=== PATIENT | female | born 1975 ===

== ENCOUNTER → 2017-10-11 | Day surgery (SDC) | payer OTHER ==
[2017-10-06 17:17] VITALS: BMI 26.6
[~2017-10-11] MED LIST: DEXAMETHASONE SOD PHOS (MDV) 100 MG/10 ML VIAL ONE; LIDOCAINE 1% INJ 10MG/ML (20 ML MDV) ONE; ONDANSETRON 4 MG/2 ML VIAL ONE; PROPOFOL 10 MG/ML 20 ML VIAL IV ONE
[2017-10-11 06:52] LABS: Glucose,Whole Blood 90 mg/dL (75-99)
--- NOTE | 2017-10-11 09:03 | PCN ---
PROCEDURE NOTE DATE OF SERVICE: 10/11/2017. REQUESTING PHYSICIAN: Dr. Maulik Goodman BRIEF HISTORY: Patient is a 42-year-old pleasant lady scheduled for an upper endoscopy as well as colonoscopy as a part of evaluation of epigastric pain, change in bowel habits, abdominal bloating for the last several years duration. Lately her symptoms are progressively getting worse and hence she is scheduled for an upper endoscopy as well as colonoscopy to evaluate further. PROCEDURE PERFORMED: 1. EGD with biopsy. 2. Colonoscopy. PREOPERATIVE DIAGNOSIS: Abdominal pain, change in bowel habits and abdominal bloating. IV sedation per anesthesia. PROCEDURE: After informed consent was obtained from the patient, she was brought into the endoscopy unit. IV conscious sedation was administered by anesthesia under continuous monitoring initially the upper endoscopy was done. The Olympus [id number] video endoscope was inserted into the mouth. Esophagus intubated without any difficulty, was gradually advanced into the stomach and duodenum and carefully examined. The bulb and the second part of the duodenum appeared normal. The scope at this time was withdrawn to the stomach adequately insufflated with air and upon careful examination, mucosa of the antrum had mild gastritis. Biopsies for H. pylori were done. Body of the stomach appeared normal and on retroflexion cardia and the fundus appeared normal. The scope was then withdrawn to the esophagus. The GE junction was located at 40 cm from the incisors, appeared regular with no erythema, erosions or ulcerations. The esophagus appeared normal and the patient tolerated the procedure well. She continued to remain sedated. At this time a colonoscopy was done. Digital rectal examination was normal. The Olympus CF 190 video colonoscope was then inserted into the rectum, gradually advanced into the cecum without any difficulty. Careful examination was performed as the scope was gradually being withdrawn. The ileocecal valve and appendiceal orifice were visualized and appeared normal. The prep was fair. Mucosa of the cecum, ascending colon, transverse colon, descending colon, sigmoid colon, and rectum appeared normal. In the rectum, retroflexion was performed no lesions were noted. The patient tolerated the procedure well. IMPRESSION: 1. Upper endoscopy revealed mild antral gastritis, but no evidence of esophagitis or peptic ulcer disease. 2. Colonoscopy was essentially within normal limits with no evidence of colitis or colorectal neoplasia. RECOMMENDATION: Findings of this examination were discussed with the patient as well as her family. She was advised to be on a high-fiber diet, take fiber supplements on a regular basis and with MiraLAX 1 scoop twice daily as needed for the chronic constipation. She will be seen in the office in 4 weeks. MMODL / IJN: [id number] /
== END ==
LOC: ORWHC2ENDO 11:13
PROVIDERS: ATTEND Internal Medicine Gastroenterology
DX: K31.9 Disease of stomach and duodenum, unspecified (principal); K21.0 Gastro-esophageal reflux disease with esophagitis; K29.70 Gastritis, unspecified, without bleeding; E11.9 Type 2 diabetes mellitus without complications; Q03.1 Atresia of foramina of Magendie and Luschka; Z79.84 Long term (current) use of oral hypoglycemic drugs; Z79.899 Other long term (current) drug therapy; Z88.8 Allergy status to other drugs, medicaments and biological substances
CPT/HCPCS: 43239; 45378; 88305

== ENCOUNTER → 2017-10-13 | Outpatient (CLI) | payer OTHER ==
--- NOTE | 2017-10-13 16:17 | MR ---
EXAMINATION TYPE: MR brain wo/w con DATE OF EXAM: 10/13/2017 COMPARISON: NONE HISTORY: Dandy-Walker malformation TECHNIQUE: Multiplanar, multisequence images of the brain and brainstem is performed without and with IV contras t, utilizing 7.5 mL intravenous Gadavist . FINDINGS: Diffusion weighted images demonstrate no evidence of a recent infarct or other diffusion ab normality. There is no extra-axial fluid collection or significant white matter signal abnormality. The ventricular system and cisternal spaces are normal in size and appearance. The brain volume is age appropriate. Small cystic space present posterior aspect of the basal ganglia on the left of ques tionable clinical significance Midline structures demonstrate normal morphology, vermis is intact. CSF fluid space present at the in ferior and posterior aspect of the posterior fossa is noted. The craniocervical junction appears wit hin normal limits. Post contrast images demonstrate no abnormal enhancement. The dural venous sinuse s appear patent. The visualized sinuses are remarkable for mucoperiosteal thickening within the maxil keshawn sinus, ethmoid air cells, and the globes are intact. IMPRESSION: Zeke cisterna magna, normal variant. Mild sinus disease.
== END | disposition home or self-care (01) ==
LOC: RADMRIMAIN 13:36
DX: Q03.1 Atresia of foramina of Magendie and Luschka (principal)
CPT/HCPCS: 82565; 70553; A9581

== ENCOUNTER → 2019-01-04 | Outpatient (CLI) | payer OTHER ==
--- NOTE | 2019-01-07 09:34 | MM ---
Reason for exam: follow-up at short interval from prior study. History: Family history of breast cancer in 2 maternal aunts and breast cancer in paternal aunt. Benign ultrasound-guided core biopsy of the left breast, 2017. Excisional biopsy of the left breast, 2017. Physical Findings: Nurse Summary: 1 x 1cm nodule in the left breast at 11 o'clock (nurse ts). MG Diagnostic Mammo w CAD AXEL Bilateral CC and MLO view(s) were taken. Spot compression MLO view(s) were taken of the left breast. The breast tissue is heterogeneously dense. This may lower the sensitivity of mammography. Compression left MLO view no persistent density. BB on scar area post surgical changes in the right breast. No significant new findings when compared with previous films. These results were verbally communicated with the patient and result sheet given to the patient on 01/04/19. ASSESSMENT: Benign, BI-RAD 2 RECOMMENDATION: Routine screening mammogram of both breasts in 1 year.
--- NOTE | 2019-01-07 09:36 | USB ---
Reason for exam: follow-up at short interval from prior study. History: Family history of breast cancer in 2 maternal aunts and breast cancer in paternal aunt. Benign ultrasound-guided core biopsy of the left breast, 2017. Excisional biopsy of the left breast, 2017. US Breast LT Left complete breast ultrasound includes all four quadrants, the retroareolar region and axilla. Finding demonstrates a 0.3 x 0.2 x 0.4cm lesion too small to characterize at 4 o'clock and a 0.7 x 0.5 x 0.6cm hypoechoic lesion at 11 o'clock correlates with palpable, biopsy recommended. These results were verbally communicated with the patient and result sheet given to the patient on 01/04/19. ASSESSMENT: Suspicious, BI-RAD 4 RECOMMENDATION: Ultrasound core biopsy of the left breast. (11 o'clock) Called with mammographic findings and has scheduled an appointment for the patient for 01/24/19 at 9:[address] Romo. Biopsy scheduled for 01/30/19 at 12:20. PRELIMINARY REPORT CALLED AND FAXED TO DR. ROMO ON 01/07/19.
== END | disposition home or self-care (01) ==
LOC: RADMAMWWP 09:41
PROVIDERS: ATTEND Internal Medicine Hematology & Oncology
DX: N60.81 Other benign mammary dysplasias of right breast (principal); N60.82 Other benign mammary dysplasias of left breast
CPT/HCPCS: 77066

== ENCOUNTER → 2019-01-30 | Day surgery (SDC) | payer OTHER ==
[2019-01-30 12:37] VITALS: PULSE 80; TEMP 98.6; BMI 29.2
[2019-01-30 14:32] VITALS: BP 110/74; RESP 16
--- NOTE | 2019-01-30 16:37 | USB ---
EXAMINATION TYPE: US biopsy breast VAD LT DATE OF EXAM: 01/30/2019 CLINICAL HISTORY: R92.8 ABN MAMMO. TECHNIQUE: Ultrasound guided vaccuum assisted core biopsy of left breast. COMPARISON: Ultrasound 01/04/2019 FINDINGS: The ultrasound guided core biopsy procedure was explained to the patient. The risks, benefits, alternatives were discussed. An informed consent was then obtained. Timeout was performed. The patient was placed in supine positioning for imaging and for the procedure. The overlying skin was prepped with betadine and sterilely draped in usual sterile fashion. Lidocaine 1% was used as anesthetic into the skin and deeper breast tissue up to area of concern in the breast. A small skin lita was made with surgical scalpel. Under ultrasound guidance, a 12-gauge vacuum assisted biopsy device was used to obtain multiple core samples. A biopsy clip was left in lesion. Good hemostasis was obtained with direct pressure. Discharge instructions were discussed with the patient. The patient will follow up with the referring physician for results. Postprocedure mammogram: The patient was transferred to mammography for physician ordered post procedure mammogram for clip placement verification. The clip is in the expected region of the biopsy. The patient tolerated the procedure well without any immediate complication. The patient was discharged to home in stable condition. IMPRESSION: 1. Successful ultrasound guided biopsy left breast. Recommendations: 1. Recommendations are pending pathology results. Pathology Results: Benign LEFT BREAST, ULTRASOUND GUIDED CORE BIOPSY: Scar with fat necrosis and background fibrocystic changes. Negative for malignancy. Recommendation Follow up mammogram of the left breast in 6 months. FLORECITA
--- NOTE | 2019-01-30 16:38 | MM ---
EXAMINATION TYPE: US biopsy breast VAD LT DATE OF EXAM: 01/30/2019 CLINICAL HISTORY: R92.8 ABN MAMMO. TECHNIQUE: Ultrasound guided vaccuum assisted core biopsy of left breast. COMPARISON: Ultrasound 01/04/2019 FINDINGS: The ultrasound guided core biopsy procedure was explained to the patient. The risks, benef its, alternatives were discussed. An informed consent was then obtained. Timeout was performed. The patient was placed in supine positioning for imaging and for the procedure. The overlying skin w as prepped with betadine and sterilely draped in usual sterile fashion. Lidocaine 1% was used as ane sthetic into the skin and deeper breast tissue up to area of concern in the breast. A small skin storm k was made with surgical scalpel. Under ultrasound guidance, a 12-gauge vacuum assisted biopsy device was used to obtain multiple core samples. A biopsy Ribbon clip was left in lesion. Good hemostasis was obtained with direct pressure. Discharge instructions were discussed with the marlon silvestre. The patient will follow up with the referring physician for results. Postprocedure mammogram: The patient was transferred to mammography for physician ordered post proced ure mammogram for clip placement verification. The clip is in the expected region of the biopsy. The patient tolerated the procedure well without any immediate complication. The patient was dischar ged to home in stable condition. IMPRESSION: 1. Successful ultrasound guided biopsy left breast. Recommendations: 1. Recommendations are pending pathology results.
== END ==
LOC: RADUSWWP 12:08
PROVIDERS: ATTEND Surgery
DX: N60.12 Diffuse cystic mastopathy of left breast (principal); N64.1 Fat necrosis of breast; L90.5 Scar conditions and fibrosis of skin; R92.8 Other abnormal and inconclusive findings on diagnostic imaging of breast; Z91.012 Allergy to eggs; Z91.011 Allergy to milk products; Z88.8 Allergy status to other drugs, medicaments and biological substances; Z91.018 Allergy to other foods
CPT/HCPCS: 88305; 77065; 19083; A4648; J2001

== ENCOUNTER → 2019-02-21 | Outpatient (CLI) | payer OTHER | END | disposition home or self-care (01) | LOC: WWCWWP 08:54 | PROVIDERS: ATTEND Surgery | DX: Z53.9 Procedure and treatment not carried out, unspecified reason (principal) ==

== ENCOUNTER 2020-11-05 12:06 | Emergency (ER) | payer OTHER ==
[2020-11-05 12:36] VITALS: BP 114/65; PULSE 87; RESP 18; TEMP 99
[2020-11-05] MEDS ORDERED: KETOROLAC 15 MG/ML 1 ML VIAL IM STA (12:43)
--- NOTE | 2020-11-05 12:53 | ED ---
Fall HPI - General Chief Complaint: Fall Stated Complaint: Chest Pain-Fall/Lt Hand Injury Time Seen by Provider: 11/05/20 12:30 Source: patient, RN notes reviewed Mode of arrival: ambulatory Limitations: no limitations - History of Present Illness Initial Comments: This a 45-year-old female presents emergency Department chief complaint of a fall. Patient states she tripped over a cat yesterday falling on the brake of a fireplace. Patient went of left wrist pain, left rib pain, left knee pain no head injury no loss conscious. Patient states she did have an abrasion on her jaw but is not really painful no headache dizziness no blurred vision. - Related Data Home Medications Medication Instructions Recorded Confirmed Cetirizine HCl [Zyrtec] 10 mg PO BID 09/19/17 01/30/19 Dextroamphetamine/Amphetamine 20 mg PO TID 09/19/17 01/30/19 [Adderall] Linaclotide [Linzess] 130 mcg PO DAILY 09/19/17 01/30/19 Methylphenidate HCl [Ritalin LA] 40 mg PO DAILY 09/19/17 01/30/19 Promethazine [Phenergan] 25 mg PO Q6HR PRN 09/19/17 01/30/19 Topiramate [Topamax] 200 mg PO DAILY 09/19/17 01/30/19 metFORMIN HCL [Glucophage] 1,000 mg PO BID 09/19/17 01/30/19 Multivitamin [Multivitamins Adult 2 each PO DAILY 10/06/17 01/30/19 Gummies] Previous Rx's Medication Instructions Recorded Ibuprofen [Motrin] 600 mg PO Q8HR PRN #20 tab 11/05/20 Allergies Allergy/AdvReac Type Severity Reaction Status Date / Time chocolate flavor Allergy Unknown Verified 01/30/19 12:47 cocoa Allergy Rash/Hives Verified 01/30/19 12:47 egg Allergy NASAL SX Verified 01/30/19 12:47 milk Allergy NASAL SX Verified 01/30/19 12:47 WITH WHOLE MILK mushroom Allergy Rash/Hives Verified 01/30/19 12:47 phenytoin [From Dilantin] Allergy tongue Verified 01/30/19 12:47 swelling Review of Systems ROS Statement: Those systems with pertinent positive or pertinent negative responses have been documented in the HPI. ROS Other: All systems not noted in ROS Statement are negative. 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 of ulcer R/T BULEMIA, Constipation severe if doesn't take medication, states takes topamax for weight loss History of Any Multi-Drug Resistant Organisms: None Reported Past Surgical History: Appendectomy, Breast Surgery, Section, Cholecystectomy, Hysterectomy Additional Past Surgical History / Comment(s): breast bx., LT partial mastectomy-not for breast cancer-large lump. COLONOSCOPY, EKG, W/ BX. Past Anesthesia/Blood Transfusion Reactions: Motion Sickness, Postoperative Nausea & Vomiting (PONV) Past Psychological History: ADD/ADHD Smoking Status: Never smoker Past Alcohol Use History: Occasional Past Drug Use History: None Reported - Past Family History Mother Family Medical History: No Reported History General Exam Limitations: no limitations General appearance: alert, in no apparent distress Head exam: Present: atraumatic, normocephalic, normal inspection Eye exam: Present: normal appearance, PERRL, EOMI. Absent: scleral icterus, conjunctival injection, periorbital swelling ENT exam: Present: normal oropharynx (No loose dentition), mucous membranes moist, TM's normal bilaterally, normal external ear exam. Absent: normal exam (Abrasion noted on the chin) Neck exam: Present: normal inspection, full ROM. Absent: tenderness, meningismus, lymphadenopathy Respiratory exam: Present: normal lung sounds bilaterally, chest wall tenderness (Left-sided). Absent: respiratory distress, wheezes, rales, rhonchi, stridor Cardiovascular Exam: Present: regular rate, normal rhythm, normal heart sounds. Absent: systolic murmur, diastolic murmur, rubs, gallop, clicks GI/Abdominal exam: Present: soft, normal bowel sounds. Absent: distended, tenderness, guarding, rebound, rigid Extremities exam: Present: other (Left wrist there is tenderness, bruising, sw elling noted neurovascular intact no upper arm redness noted, left knee small area of ecchymosis with tenderness palpation, neurovascular intact full range of motion) Neurological exam: Present: alert, oriented X3, CN II-XII intact, reflexes normal. Absent: motor sensory deficit Skin exam: Present: warm, dry, intact, normal color. Absent: rash Course Vital Signs 11/05/20 12:29 Temperature 99 F Pulse Rate 87 Respiratory 18 Rate Blood Pressure 114/65 O2 Sat by Pulse 96 Oximetry Medical Decision Making - Medical Decision Making X-rays are negative for acute fracture as read read by radiologist. Patient has left rib contusion, left wrist sprain, left knee contusion. Disposition Clinical Impression: Fall, Left wrist sprain, Contusion of left knee, Contusion of rib on left side Disposition: HOME SELF-CARE Condition: Stable Instructions (If sedation given, give patient instructions): Wrist Sprain (ED) Additional Instructions: Please return to the Emergency Department if symptoms worsen or any other concerns. Prescriptions: Ibuprofen [Motrin] 600 mg PO Q8HR PRN #20 tab PRN Reason: Pain Is patient prescribed a controlled substance at d/c from ED?: No Referrals: Nonstaff,Physician [REFERRING] - 1-2 days Time of Disposition: 14:13
--- NOTE | 2020-11-05 13:54 | XR ---
Chest x-ray and left RIBS HISTORY: Trauma and pain left side Frontal view of the chest, 4 views the left ribs submitted and correlated prior chest x-ray dated 05/20 There is no evident pneumothorax or pleural effusion, no lung contusion or evident airspace disease. Cardiac mediastinal silhouette, pulmonary vascularity and cassidy within normal limits accounting for ro tation toward the right. No displaced rib fracture is noted. Surgical clips are present in the right upper quadrant. IMPRESSION: No acute abnormality. Bone scan could be performed for increased sensitivity as indicated if occult fracture is suspected clinically.
--- NOTE | 2020-11-05 13:57 | XR ---
Left knee HISTORY: Pain 3 views of the left knee Bone mineralization, joint spaces and alignment are maintained. No fracture or dislocation. No eviden t joint effusion. IMPRESSION: No significant abnormality is evident.
--- NOTE | 2020-11-05 13:58 | XR ---
Left wrist HISTORY: Pain 4 views of the left wrist Bone mineralization, joint spaces and alignment are maintained. No fracture or dislocation is evident . IMPRESSION: No significant abnormality evident.
[2020-11-05] MEDS ORDERED: ACET/COD 300 MG/30 MG STARTER PACK 6 TAB BTL PO STA (14:14)
== END 2020-11-05 14:24 | disposition home or self-care (01) ==
LOC: EC 12:06
DX: S63.502A Unspecified sprain of left wrist, initial encounter (principal); S80.02XA Contusion of left knee, initial encounter; S20.212A Contusion of left front wall of thorax, initial encounter; E11.9 Type 2 diabetes mellitus without complications; G40.909 Epilepsy, unspecified, not intractable, without status epilepticus; F90.9 Attention-deficit hyperactivity disorder, unspecified type; K21.9 Gastro-esophageal reflux disease without esophagitis; Z79.84 Long term (current) use of oral hypoglycemic drugs; Z79.899 Other long term (current) drug therapy; Z90.12 Acquired absence of left breast and nipple; W01.0XXA Fall on same level from slipping, tripping and stumbling without subsequent striking against object, initial encounter
CPT/HCPCS: 71101; 73110; 73562; 96372; 99284; J1885; 93005

== ENCOUNTER 2024-02-22 13:03 | Emergency (ER) | payer BC, OTHER ==
--- NOTE | 2024-02-22 13:26 | ED ---
General Adult HPI - General Chief complaint: Abdominal Pain Stated complaint: Constipation Time Seen by Provider: 02/22/24 13:05 Source: patient, RN notes reviewed, old records reviewed Mode of arrival: ambulatory Limitations: no limitations - History of Present Illness Initial comments: This is a 48-year-old female who presents to the emergency department stating that she has not had a bowel movement in 2 weeks. Patient states she is to have a constipation problem that she takes Linzess 5 days a week and has not have a problem in years patient states she has been a little nauseous but no vomiting. Patient has back pain. Patient has fever chills patient denies any dysuria hematuria. - Related Data Home Medications Medication Instructions Recorded Confirmed Cetirizine HCl [Zyrtec] 10 mg PO BID 09/19/17 01/30/19 Dextroamphetamine/Amphetamine 20 mg PO TID 09/19/17 01/30/19 [Adderall] Linaclotide [Linzess] 130 mcg PO DAILY 09/19/17 01/30/19 Methylphenidate HCl [Ritalin LA] 40 mg PO DAILY 09/19/17 01/30/19 Promethazine [Phenergan] 25 mg PO Q6HR PRN 09/19/17 01/30/19 Topiramate [Topamax] 200 mg PO DAILY 09/19/17 01/30/19 metFORMIN HCL [Glucophage] 1,000 mg PO BID 09/19/17 01/30/19 Multivitamin [Multivitamins Adult 2 each PO DAILY 10/06/17 01/30/19 Gummies] Previous Rx's Medication Instructions Recorded Ibuprofen [Motrin] 600 mg PO Q8HR PRN #20 tab 11/05/20 Allergies Allergy/AdvReac Type Severity Reaction Status Date / Time chocolate flavor Allergy Unknown Verified 02/22/24 13:10 cocoa Allergy Rash/Hives Verified 02/22/24 13:10 egg Allergy NASAL SX Verified 02/22/24 13:10 milk Allergy NASAL SX Verified 02/22/24 13:10 WITH WHOLE MILK mushroom Allergy Rash/Hives Verified 02/22/24 13:10 phenytoin [From Dilantin] Allergy tongue Verified 02/22/24 13:10 swelling Review of Systems ROS Statement: Those systems with pertinent positive or pertinent negative responses have been documented in the HPI. ROS Other: All systems not noted in ROS Statement are negative. 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 of ulcer R/T BULEMIA, Constipation severe if doesn't take medication, states takes topamax for weight loss History of Any Multi-Drug Resistant Organisms: None Reported Past Surgical History: Appendectomy, Breast Surgery, Section, Cholecystectomy, Hysterectomy Additional Past Surgical History / Comment(s): breast bx., LT partial mastectomy-not for breast cancer-large lump. COLONOSCOPY, EKG, W/ BX. Past Anesthesia/Blood Transfusion Reactions: Motion Sickness, Postoperative Nausea & Vomiting (PONV) Past Psychological History: ADD/ADHD Smoking Status: Never smoker Past Alcohol Use History: Occasional Past Drug Use History: None Reported - Past Family History Mother Family Medical History: No Reported History General Exam - General Exam Comments Initial Comments: GENERAL: Patient is well-developed and well-nourished. Patient is nontoxic and well- hydrated and is in no acute distress. ENT: Neck is soft and supple. No significant lymphadenopathy is noted. Oropharynx is clear. Moist mucous membranes. Neck has full range of motion without eliciting any pain. EYES: The sclera were anicteric and conjunctiva were pink and moist. Extraocular movements were intact and pupils were equal round and reactive to light. Eyelids were unremarkable. ABDOMEN: Soft and nontender with normal bowel sounds. SKIN: Skin is clear with no lesions or rashes and otherwise unremarkable. NEUROLOGIC: Patient is alert and oriented x3. Cranial nerves II through XII are grossly intact. Motor and sensory are also intact. Normal speech, volume and content. Symmetrical smile. MUSCULOSKELETAL: Normal extremities with adequate strength and full range of motion. PSYCHIATRIC: Normal psychiatric evaluation. Limitations: no limitations Course Vital Signs 02/22/24 13:06 Temperature 97.6 F Pulse Rate 104 H Respiratory 20 Rate Blood Pressure 126/79 O2 Sat by Pulse 99 Oximetry Medical Decision Making - Medical Decision Making Was pt. sent in by a medical professional or institution (, PA, UPWARD BOUND DIRECTOR, urgent care, hospital, or longterm...) When possible be specific @ -No Did you speak to anyone other than the patient for history (EMS, parent, family, police, friend...)? What history was obtained from this source @ -No Did you review nursing and triage notes (agree or disagree)? Why? @ -I reviewed and agree with nursing and triage notes Were old charts reviewed (outside hosp., previous admission, EMS record, old EKG, old radiological studies, urgent care reports/EKG's, longterm records)? Report findings @ -No old charts were reviewed Differential Diagnosis? @ -Differential Abdominal Pain Women: Appendicitis, Cholecystitis, diverticulosis, ischemic bowel, pancreatitis, hepatitis, UTI, gastroenteritis, AAA, incarcerated hernia, bowel obstruction, constipation, inflammatory bowel, hepatitis, peptic ulcer disease, splenic infarction, perforated viscus, vulvitis, ovarian torsion, PID, kidney stone, placenta abruption, this is not meant to be an all-inclusive list EKG interpreted by me (3pts min.). @ -As above X-rays interpreted by me (1pt min.). @ -Patient's KUB shows constipation CT interpreted by me (1pt min.). @ -None done U/S interpreted by me (1pt. min.). @ -None done What testing was considered but not performed or refused? (CT, X-rays, U/S, labs)? Why? @ -None What meds were considered but not given or refused? Why? @ -None Did you discuss the management of the patient with other professionals (professionals i.e. , PA, UPWARD BOUND DIRECTOR, lab, RT, psych nurse, adoption social worker, utility driver, teacher, disability liaison officer, therapeutic case manager)? Give summary @ -No Was smoking cessation discussed for >3mins.? @ -No Was critical care preformed (if so, how long)? @ -No Were there social determinants of health that impacted care today? How? (Homelessness, low income, unemployed, alcoholism, drug addiction, transportation, low edu. Level, literacy, decrease access to med. care, fci, rehab)? @ -No Was there de-escalation of care discussed even if they declined (Discuss DNR or withdrawal of care, Hospice)? DNR status @ -No What co-morbidities impacted this encounter? (DM, HTN, Smoking, COPD, CAD, Cancer, CVA, ARF, Chemo, Hep., AIDS, mental health diagnosis, sleep apnea, morbid obesity)? @ -None Was patient admitted / discharged? Hospital course, mention meds given and route, prescriptions, significant lab abnormalities, going to OR and other pertinent info. @ -Patient was given an enema with only minimal results and she did not want a second enema so patient will be given mag citrate to take at home. Undiagnosed new problem with uncertain prognosis? @ -No Drug Therapy requiring intensive monitoring for toxicity (Heparin, Nitro, Insulin, Cardizem)? @ -No Were any procedures done? @ -No Diagnosis/symptom? @ -Constipation Acute, or Chronic, or Acute on Chronic? @ -Acute Uncomplicated (without systemic symptoms) or Complicated (systemic symptoms)? @ -Complicated Side effects of treatment? @ -No Exacerbation, Progression, or Severe Exacerbation? @ -No Poses a threat to life or bodily function? How? (Chest pain, [place], [place], pneumonia, PE, COPD, DKA, ARF, appy, cholecystitis, CVA, Diverticulitis, Homicidal, Suicidal, threat to staff... and all critical care pts) @ -No Disposition Clinical Impression: Constipation Disposition: HOME SELF-CARE Additional Instructions: Patient should take mag citrate. Is patient prescribed a controlled substance at d/c from ED?: No Referrals: Maulik Goodman MD [Primary Care Provider] - 1-2 days Time of Disposition: 15:17
--- NOTE | 2024-02-22 14:16 | XR ---
EXAMINATION TYPE: XR KUB DATE OF EXAM: 02/22/2024 COMPARISON: NONE CLINICAL INDICATION: Female, 48 years old with history of Abdominal pain; TECHNIQUE: XR KUB views of the abdomen. FINDINGS: The osseous structures are intact. The bowel gas pattern is nonspecific. Retained fecal debris throu ghout the colon. Surgical clips gallbladder fossa. Punctate calcification in the pelvis to small radha acterize but likely vascular. Sclerosis of the left SI joint likely related to sacroiliitis. IMPRESSION: 1. Nonspecific abdomen. Correlate for constipation. [facility], , 02/22/2024 2:14 PM
[2024-02-22] MEDS: MAGNESIUM CITRATE 296 ML BOTTLE PO ONE (15:27)
[2024-02-22 15:30] VITALS: BP 130/76; PULSE 96; RESP 18; TEMP 98.1
== END 2024-02-22 15:30 | disposition home or self-care (01) ==
LOC: EC 13:03
DX: K59.00 Constipation, unspecified (principal); Z91.018 Allergy to other foods; Z91.012 Allergy to eggs; Z91.011 Allergy to milk products; Z88.8 Allergy status to other drugs, medicaments and biological substances
CPT/HCPCS: 74018; 99284

== ENCOUNTER → 2024-09-05 | Outpatient (CLI) | payer BC ==
--- NOTE | 2024-09-05 10:48 | XR ---
EXAMINATION TYPE: XR abdomen 1V DATE OF EXAM: 09/05/2024 9:51 AM COMPARISON: 02/22/2024 CLINICAL INDICATION: Female, 48 years old with history of R10.84 ABD PAIN; PHH, pain TECHNIQUE: One radiographic view of the abdomen was obtained. FINDINGS: Lung bases are clear. Cholecystectomy clips. Scattered mild stool, more moderate within the pelvis. N o dilated small bowel loops. Phleboliths in the pelvis. IMPRESSION: Mild scattered stool though more moderate within the pelvis. Nonobstructive bowel gas pattern. [facility], Workstation: [facility], 09/05/2024 10:46 AM
== END | disposition home or self-care (01) ==
LOC: RADXRMAIN 09:28
PROVIDERS: ATTEND Internal Medicine Gastroenterology
DX: R10.84 Generalized abdominal pain (principal); R19.5 Other fecal abnormalities; R14.0 Abdominal distension (gaseous)
CPT/HCPCS: 74018